=== PATIENT | male | born 1970 | race Hispanic/Latino ===

== ENCOUNTER 2021-07-02 09:36 | Inpatient (IN) | payer OTHER, SELFPAY ==
[~2021-07-02] VITALS: Ht 162.6 cm; Wt 117.9 kg
[2021-07-02 09:38] VITALS: BP 171/105
[2021-07-02 10:02] LABS: BASOPHILS % (AUTO) 0.6 % (0.0-5.0); EOSINOPHILS % (AUTO) 0.1 % (0.0-8.0); HEMATOCRIT 50.5 % (42-54); LYMPHOCYTES % (AUTO) 6.4 % (21.0-51.0); MEAN CORPUSCULAR HEMOGLOBIN 27.2 pg (27.0-33.0); MEAN CORPUSCULAR HGB CONC 29.9 g/dL (32.0-36.0); MEAN CORPUSCULAR VOLUME 90.8 fL (79-99); MONOCYTES % (AUTO) 6.2 % (3.0-13.0); NUCLEATED RED BLOOD CELLS 0.2 % (0.0-0.19); PLATELET COUNT (AUTO) 392 K/uL (130-400); RED BLOOD CELL COUNT(AUTO) 5.56 MIL/uL (4.50-6.20); RED CELL DISTRIBUTION WIDTH 16.1 % (11.0-15.5); WHITE BLOOD COUNT (AUTO) 13.8 K/uL (4.8-10.8)
[2021-07-02 10:16] LABS: CREATININE 1.2 mg/dL (0.5-1.5)
[2021-07-02 10:17] LABS: INR 1.02 (0.85-1.15); PROTHROMBIN TIME 11.1 SEC (9.6-11.6)
[2021-07-02 10:18] LABS: PARTIAL THROMBOPLASTIN TIME 26.5 SEC (26.3-35.5)
[2021-07-02 10:22] LABS: ALBUMIN 3.6 g/dL (3.5-5.0); BILIRUBIN,TOTAL 0.5 mg/dL (0.2-1.0); TOTAL PROTEIN, SERUM 7.8 g/dL (6.0-8.3)
[2021-07-02 10:39] LABS: ABG BASE EXCESS 1.7 mmol/L (-2.0-3.0); ABG HCO3 32.3 mmol/L (21.0-28.0); ABG OXYGEN SATURATION 95.3 % (95.0-99.0); ABG PCO2 81 mmHg (35-48)
[2021-07-02] MEDS ORDERED: CEFTRIAXONE 1G VIAL IVP SCH (11:00)
[2021-07-02] MEDS ORDERED: AZITHROMYCIN 250 MG TABLET PO SCH (11:00)
[2021-07-02] MEDS ORDERED: DEXAMETHASONE SOD PHOSPHATE 4 MG/ML 1ML VIAL IVP SCH (11:00)
[2021-07-02 11:24] VITALS: BP 135/95
[2021-07-02] MEDS ORDERED: ONDANSETRON 4MG INJ IV PRN (12:00)
[2021-07-02] MEDS ORDERED: HYDRALAZINE 20MG/ML VIAL IV PRN (12:00)
[2021-07-02] MEDS ORDERED: ACETAMINOPHEN 325 MG TAB PO PRN (12:00)
[2021-07-02 12:26] VITALS: BP 127/75
[2021-07-02] MEDS: FAMOTIDINE 20MG VIAL IV SCH ×2 (12:32→21:34)
[2021-07-02] MEDS: DOXYCYCLINE 100MG+NS 250ML IV SCH (14:28)
[2021-07-02] MEDS: 0.9% NACL 250ML IVPB SCH (14:28)
[2021-07-02 14:54] VITALS: BP 126/72
[2021-07-02 17:30] VITALS: BP 136/70
[2021-07-02] MEDS ORDERED: PHARMACY COMMUNICATION MISC SCH ×2 (18:30)
[2021-07-02 19:54] VITALS: BP 154/70
[2021-07-02] MEDS ORDERED: REMDESIVIR (EUA) 520 200 MG in 0.9% NACL 250ML 250 ML IV ONE (20:00)
[2021-07-02] MEDS ORDERED: COMPOUND IV REFRIGERATED 1 EACH IVSOLN MISC PRN (20:00)
[2021-07-02 22:32] LABS: APPEARANCE,URINE Clear (CLEAR); BILIRUBIN,URINE Negative (NEGATIVE); COLOR,URINE Yellow (YELLOW); GLUCOSE, URINE (UA) Negative (NEGATIVE); KETONES,URINE Negative (NEGATIVE); LEUKOCYTE ESTERASE ,URINE Negative (NEGATIVE); NITRATE,URINE Negative (NEGATIVE); OCCULT BLOOD,URINE Negative (NEGATIVE); PROTEIN,URINE POS 1+ mg/dL (NEGATIVE); UROBILINOGEN,URINE 0.2 mg/dL (0.2-1.0)
[2021-07-02 22:51] LABS: BACTERIA,URINE None Seen /HPF (None Seen); RBC,URINE None Seen /HPF (0-1); SQUAMOUS EPITHELIAL CELL,UR Rare /HPF (0-2); WBC,URINE None Seen /HPF (0-1)
[2021-07-03] VITALS (11 sets, daily range): BP systolic 100–155; BP diastolic 45–85
[2021-07-03] MEDS: DOXYCYCLINE 100MG+NS 250ML IV SCH ×2 (02:44→14:26)
[2021-07-03] MEDS: 0.9% NACL 250ML IVPB SCH ×2 (02:44→14:26)
[2021-07-03 04:30] LABS: ABG BASE EXCESS 3.9 mmol/L (-2.0-3.0); ABG HCO3 34.6 mmol/L (21.0-28.0); ABG OXYGEN SATURATION 95.2 % (95.0-99.0); ABG PCO2 85 mmHg (35-48)
[2021-07-03] MEDS: REMDESIVIR LABS MISC SCH (06:00)
[2021-07-03 07:42] LABS: BASOPHILS % (AUTO) 0.4 % (0.0-5.0); EOSINOPHILS % (AUTO) 0.1 % (0.0-8.0); HEMATOCRIT 45.9 % (42-54); LYMPHOCYTES % (AUTO) 9.2 % (21.0-51.0); MEAN CORPUSCULAR HEMOGLOBIN 27.1 pg (27.0-33.0); MEAN CORPUSCULAR HGB CONC 28.8 g/dL (32.0-36.0); MEAN CORPUSCULAR VOLUME 94.3 fL (79-99); MONOCYTES % (AUTO) 6.9 % (3.0-13.0); NEUTROPHILS % (AUTO) 82.8 % (40.0-77.0); NUCLEATED RED BLOOD CELLS 0.3 % (0.0-0.19); PLATELET COUNT (AUTO) 298 K/uL (130-400); RED BLOOD CELL COUNT(AUTO) 4.87 MIL/uL (4.50-6.20); WHITE BLOOD COUNT (AUTO) 10.6 K/uL (4.8-10.8)
[2021-07-03] MEDS ORDERED: AZITHROMYCIN 500MG VIAL IVPB SCH (08:00)
[2021-07-03 08:04] LABS: ALBUMIN 2.8 g/dL (3.5-5.0); BILIRUBIN,TOTAL 0.3 mg/dL (0.2-1.0); CREATININE 0.9 mg/dL (0.5-1.5); CRP QUANTITATIVE 67.1 mg/L (0.00-9.0); POTASSIUM 4.3 mmol/L (3.5-5.1); TOTAL PROTEIN, SERUM 6.4 g/dL (6.0-8.3)
[2021-07-03] MEDS ORDERED: ENOXAPARIN SODIUM 40 MG/0.4 ML SYRINGE SQ SCH (09:00)
[2021-07-03] MEDS ORDERED: CEFTRIAXONE 1G VIAL IVP SCH (09:00)
[2021-07-03] MEDS ORDERED: BARICITINIB (EUA) 2 MG TABLET PO SCH (09:00)
[2021-07-03] MEDS: FAMOTIDINE 20MG VIAL IV SCH (09:42)
[2021-07-03] MEDS: DEXAMETHASONE SOD PHOSPHATE 4 MG/ML 1ML VIAL IVP SCH (09:42)
[2021-07-03] MEDS: ENOXAPARIN SODIUM 40 MG/0.4 ML SYRINGE SQ SCH ×2 (09:43→22:46)
[2021-07-03 10:52] LABS: HEMOGLOBIN A1C 6.4 % (4.0-6.0)
[2021-07-03] MEDS: CEFEPIME HCL 2 GM VIAL IVP SCH (18:35)
[2021-07-03] MEDS: REMDESIVIR (EUA) 520 100 MG in 0.9% NACL 250ML 250 ML IV SCH (20:00)
[2021-07-04] VITALS (8 sets, daily range): BP systolic 108–145; BP diastolic 56–73
[2021-07-04] MEDS: 0.9% NACL 250ML IVPB SCH ×2 (03:05→15:44)
[2021-07-04] MEDS: DOXYCYCLINE 100MG+NS 250ML IV SCH ×2 (03:05→15:44)
[2021-07-04 03:52] LABS: ABG BASE EXCESS 8.7 mmol/L (-2.0-3.0); ABG HCO3 37.7 mmol/L (21.0-28.0); ABG OXYGEN SATURATION 97.3 % (95.0-99.0); ABG PCO2 72 mmHg (35-48)
[2021-07-04] MEDS: REMDESIVIR LABS MISC SCH (06:00)
[2021-07-04] MEDS: CEFEPIME HCL 2 GM VIAL IVP SCH ×2 (06:11→19:20)
[2021-07-04 06:26] LABS: BASOPHILS % (AUTO) 0.3 % (0.0-5.0); EOSINOPHILS % (AUTO) 0.1 % (0.0-8.0); HEMATOCRIT 41.9 % (42-54); LYMPHOCYTES % (AUTO) 16.4 % (21.0-51.0); MEAN CORPUSCULAR HEMOGLOBIN 27.2 pg (27.0-33.0); MEAN CORPUSCULAR HGB CONC 30.1 g/dL (32.0-36.0); MEAN CORPUSCULAR VOLUME 90.3 fL (79-99); MONOCYTES % (AUTO) 10.1 % (3.0-13.0); NEUTROPHILS % (AUTO) 72.5 % (40.0-77.0); NUCLEATED RED BLOOD CELLS 0.3 % (0.0-0.19); PLATELET COUNT (AUTO) 335 K/uL (130-400); RED BLOOD CELL COUNT(AUTO) 4.64 MIL/uL (4.50-6.20); RED CELL DISTRIBUTION WIDTH 15.7 % (11.0-15.5); WHITE BLOOD COUNT (AUTO) 7.2 K/uL (4.8-10.8)
[2021-07-04 06:41] LABS: ALBUMIN 2.8 g/dL (3.5-5.0); BILIRUBIN,TOTAL 0.4 mg/dL (0.2-1.0); CREATININE 0.9 mg/dL (0.5-1.5); TOTAL PROTEIN, SERUM 6.4 g/dL (6.0-8.3)
[2021-07-04] MEDS: PANTOPRAZOLE 40 MG TAB DR PO SCH (07:26)
[2021-07-04] MEDS: DEXAMETHASONE SOD PHOSPHATE 4 MG/ML 1ML VIAL IVP SCH (08:42)
[2021-07-04] MEDS: ENOXAPARIN SODIUM 40 MG/0.4 ML SYRINGE SQ SCH ×2 (08:42→21:20)
[2021-07-04] MEDS: REMDESIVIR (EUA) 520 100 MG in 0.9% NACL 250ML 250 ML IV SCH (20:38)
[2021-07-05 02:15] VITALS: BP 118/77
[2021-07-05] MEDS: DOXYCYCLINE 100MG+NS 250ML IV SCH (02:27)
[2021-07-05] MEDS: 0.9% NACL 250ML IVPB SCH (02:27)
[2021-07-05 04:03] VITALS: BP 119/74
[2021-07-05] MEDS: REMDESIVIR LABS MISC SCH (06:35)
[2021-07-05 06:49] LABS: BASOPHILS % (AUTO) 0.4 % (0.0-5.0); EOSINOPHILS % (AUTO) 0.1 % (0.0-8.0); HEMATOCRIT 42.5 % (42-54); LYMPHOCYTES % (AUTO) 13.6 % (21.0-51.0); MEAN CORPUSCULAR HEMOGLOBIN 27.3 pg (27.0-33.0); MEAN CORPUSCULAR HGB CONC 30.6 g/dL (32.0-36.0); MEAN CORPUSCULAR VOLUME 89.3 fL (79-99); MONOCYTES % (AUTO) 10.5 % (3.0-13.0); NEUTROPHILS % (AUTO) 74.9 % (40.0-77.0); PLATELET COUNT (AUTO) 354 K/uL (130-400); RED BLOOD CELL COUNT(AUTO) 4.76 MIL/uL (4.50-6.20); RED CELL DISTRIBUTION WIDTH 15.8 % (11.0-15.5); WHITE BLOOD COUNT (AUTO) 7.9 K/uL (4.8-10.8)
[2021-07-05 06:53] VITALS: BP 127/73
[2021-07-05 07:01] LABS: ALBUMIN 2.8 g/dL (3.5-5.0); BILIRUBIN,TOTAL 0.4 mg/dL (0.2-1.0); CREATININE 0.9 mg/dL (0.5-1.5); POTASSIUM 3.7 mmol/L (3.5-5.1); TOTAL PROTEIN, SERUM 6.3 g/dL (6.0-8.3)
[2021-07-05] MEDS: PANTOPRAZOLE 40 MG TAB DR PO SCH (07:17)
[2021-07-05 08:00] VITALS: BP 104/59
[2021-07-05] MEDS ORDERED: 0.9%NACL 100ML 100 ML ONE (10:36)
[2021-07-05] MEDS: CEFEPIME HCL 2 GM VIAL IVP SCH (10:41)
[2021-07-05] MEDS: ENOXAPARIN SODIUM 40 MG/0.4 ML SYRINGE SQ SCH (10:42)
[2021-07-05] MEDS: DEXAMETHASONE SOD PHOSPHATE 4 MG/ML 1ML VIAL IVP SCH (10:42)
[2021-07-05] MEDS ORDERED: CEFU500T67 PO (13:46)
[2021-07-05] MEDS ORDERED: PANT20TA PO (13:46)
[2021-07-05] MEDS ORDERED: ASPI-1197 PO (13:46)
[2021-07-05] MEDS ORDERED: IPRAHFA IH (13:46)
[2021-07-05] MEDS ORDERED: DOXY-336 PO (13:46)
[2021-07-05 15:06] VITALS: BP 123/70
== END 2021-07-05 15:48 | disposition home or self-care (01) | DRG 177 ==
LOC: EDH 09:36 → EDHIP 09:37
PROVIDERS: ADMIT Hospitalist; ATTEND Hospitalist
PROC: XW033E5 Introduction of Remdesivir Anti-infective into Peripheral Vein, Percutaneous Approach, New Technology Group 5 (ICD-10-PCS; 2021-07-02)
PROC: 5A09357 Assistance with Respiratory Ventilation, Less than 24 Consecutive Hours, Continuous Positive Airway Pressure (ICD-10-PCS; 2021-07-02)
PROC: XW0DXM6 Introduction of Baricitinib into Mouth and Pharynx, External Approach, New Technology Group 6 (ICD-10-PCS; principal; 2021-07-03)
PROC: 5A09357 Assistance with Respiratory Ventilation, Less than 24 Consecutive Hours, Continuous Positive Airway Pressure (ICD-10-PCS; 2021-07-03)
PROC: 5A09357 Assistance with Respiratory Ventilation, Less than 24 Consecutive Hours, Continuous Positive Airway Pressure (ICD-10-PCS; 2021-07-04)
PROC: 5A09357 Assistance with Respiratory Ventilation, Less than 24 Consecutive Hours, Continuous Positive Airway Pressure (ICD-10-PCS; 2021-07-05)
DX: U07.1 COVID-19 (principal); J96.22 Acute and chronic respiratory failure with hypercapnia; J96.21 Acute and chronic respiratory failure with hypoxia; J12.82 Pneumonia due to coronavirus disease 2019; E87.2 Acidosis; I24.8 Other forms of acute ischemic heart disease; E66.2 Morbid (severe) obesity with alveolar hypoventilation; Z68.41 Body mass index [BMI] 40.0-44.9, adult; F17.200 Nicotine dependence, unspecified, uncomplicated; J84.89 Other specified interstitial pulmonary diseases
CPT/HCPCS: 36415; 36600; 71045; 71250; 80053; 81001; 82435; 82550; 82728; 82803; 82947; 83036; 83605; 83880; 84132; 84145; 84295; 84484; 85018; 85025; 85378; 85610; 85651; 85730; 86140; 86738; 86850; 86900; 86901; 87040; 87088; 87449; 87635; 87804; 93005; 94660; 94760; C9803; G0378; J0692; J0696; J1100; J1650; J3490; J7050; U0003

== ENCOUNTER 2022-09-29 20:58 | Emergency (ER) | payer BC, OTHER ==
[~2022-09-29] VITALS: Ht 167.6 cm; Wt 149.7 kg
[~2022-09-29 20:58] MED LIST: ASPI-1197 PO; CEFU500T67 PO; DOXY-469 PO; IPRAHFA IH; PANT20TA PO
[2022-09-29] MEDS ORDERED: NITROGLYCERIN 1GM OINT 1 INCH/1GM TD ONE (21:30)
[2022-09-29] MEDS ORDERED: NITROGLYCERIN 0.4 MG SL TAB SL PRN (21:30)
[2022-09-29] MEDS ORDERED: ASPIRIN 325MG TAB PO ONE (21:30)
[2022-09-29 21:31] LABS: BASOPHILS % (AUTO) 0.4 % (0.0-5.0); EOSINOPHILS % (AUTO) 2.6 % (0.0-8.0); HEMATOCRIT 41.2 % (42-54); LYMPHOCYTES % (AUTO) 17.2 % (21.0-51.0); MEAN CORPUSCULAR HEMOGLOBIN 27.5 pg (27.0-33.0); MEAN CORPUSCULAR VOLUME 85.8 fL (79-99); NEUTROPHILS % (AUTO) 73.2 % (40.0-77.0); PLATELET COUNT (AUTO) 337 K/uL (130-400); RED CELL DISTRIBUTION WIDTH 16.3 % (11.0-15.5); WHITE BLOOD COUNT (AUTO) 10.2 K/uL (4.8-10.8)
[2022-09-29 21:35] LABS: APPEARANCE,URINE CLEAR (CLEAR); BILIRUBIN,URINE NEGATIVE (NEGATIVE); COLOR,URINE YELLOW (YELLOW); GLUCOSE, URINE (UA) NEGATIVE (NEGATIVE); KETONES,URINE NEGATIVE (NEGATIVE); LEUKOCYTE ESTERASE ,URINE NEGATIVE Leu/uL (NEGATIVE); NITRATE,URINE NEGATIVE (NEGATIVE); OCCULT BLOOD,URINE NEGATIVE (NEGATIVE); PH,URINE 6.5 (5.0-8.0); PROTEIN,URINE 50 mg/dL (NEGATIVE); UROBILINOGEN,URINE 3 mg/dL (0.2-1.0)
[2022-09-29 21:41] LABS: MUCUS,URINE FEW LPF (None Seen); OTHER CASTS, URINE 1 /LPF (None Seen); POTASSIUM 4.8 mmol/L (3.5-5.1); SQUAMOUS EPITHELIAL CELL,UR RARE /HPF (0-2)
[2022-09-29 21:47] LABS: ALBUMIN 3.2 g/dL (3.5-5.0); CRP QUANTITATIVE 24.4 mg/L (0.00-9.0); MAGNESIUM 2.1 mg/dL (1.80-2.40); TOTAL PROTEIN, SERUM 7.5 g/dL (6.0-8.3)
[2022-09-29 21:55] LABS: B-TYPE NATRIURETIC PEPTIDE 12 pg/mL (0-100)
[2022-09-29] MEDS ORDERED: KETOROLAC 30MG VIAL (30MG/ML) ONE (21:58)
[2022-09-29] MEDS ORDERED: CYCLOBENZAPRINE HCL 10 MG TABLET ONE (21:58)
[2022-09-29] MEDS ORDERED: CYCLOBENZAPRINE HCL 10 MG TABLET PO ONE (22:00)
[2022-09-29] MEDS ORDERED: KETOROLAC 30MG VIAL (30MG/ML) IVP ONE (22:00)
[2022-09-29 22:24] LABS: AMPHET/METH SCREEN,URINE NEGATIVE (NEGATIVE); BARBITURATE SCREEN, URINE NEGATIVE (NEGATIVE); BENZODIAZEPINES SCREEN,URINE NEGATIVE (NEGATIVE); CANNABINOID SCREEN,URINE POSITIVE (NEGATIVE); COCAINE SCREEN,URINE NEGATIVE (NEGATIVE); OPIATE SCREEN,URINE NEGATIVE (NEGATIVE); PHENCYCLIDINE SCREEN,URINE NEGATIVE (NEGATIVE)
[2022-09-29 23:00] VITALS: BP 108/62
[2022-09-29] MEDS ORDERED: NAPR-1180 PO (23:03)
[2022-09-29] MEDS ORDERED: CYCL10TA16 PO (23:03)
== END 2022-09-29 23:14 | disposition home or self-care (01) ==
LOC: EDH 20:58
DX: R07.89 Other chest pain (principal); M94.0 Chondrocostal junction syndrome [Tietze]; E66.01 Morbid (severe) obesity due to excess calories; F12.10 Cannabis abuse, uncomplicated; Z79.1 Long term (current) use of non-steroidal anti-inflammatories (NSAID); Z79.82 Long term (current) use of aspirin
CPT/HCPCS: 99284; 71045; 82550; 83735; 84484 ×2; 80053; 83880; 80305; 85025; 82948; 86140; 36415; 93005; 81001; J1885